=== PATIENT | female | born 1950 | race Caucasian/White ===

== ENCOUNTER 2023-01-02 10:40 | Day surgery (SDC) | payer OTHER ==
[2022-12-28 10:31] VITALS: BMI 22.4
[2023-01-02 14:20] VITALS: BP 136/72; PULSE 60; RESP 17; TEMP 97.6
== END 2023-01-02 14:22 | disposition home or self-care (01) ==
LOC: FASU-ENDO 10:40
PROVIDERS: ATTEND Internal Medicine Gastroenterology
PROC: 0DBL8ZX Excision of Transverse Colon, Via Natural or Artificial Opening Endoscopic, Diagnostic (ICD-10-PCS; 2023-01-02)
PROC: 0DBM8ZX Excision of Descending Colon, Via Natural or Artificial Opening Endoscopic, Diagnostic (ICD-10-PCS; 2023-01-02)
PROC: 0DBK8ZX Excision of Ascending Colon, Via Natural or Artificial Opening Endoscopic, Diagnostic (ICD-10-PCS; principal; 2023-01-02 13:04)
DX: Z12.11 Encounter for screening for malignant neoplasm of colon (principal); K64.1 Second degree hemorrhoids; K64.8 Other hemorrhoids; R19.7 Diarrhea, unspecified; K92.1 Melena
CPT/HCPCS: 88305-TC